=== PATIENT | female | born 1980 | race Hispanic/Latino ===

== ENCOUNTER 2024-08-30 11:12 | Outpatient (CLI) | payer BC | END 2024-08-30 11:13 | disposition home or self-care (01) | LOC: CSHULT 11:12 | PROVIDERS: ATTEND Family Medicine | DX: R74.01 Elevation of levels of liver transaminase levels (principal); Z12.31 Encounter for screening mammogram for malignant neoplasm of breast; R16.0 Hepatomegaly, not elsewhere classified; K76.89 Other specified diseases of liver | CPT/HCPCS: 76705; 77063; 77067 ==